=== PATIENT | male | born 1940 | race Hispanic/Latino ===

== ENCOUNTER 2019-05-01 08:07 | Inpatient (IN) | payer MEDICARE ==
[2019-04-28 10:51] LABS: BASOPHILS # (AUTO) 0.1 (0.0-0.1); BASOPHILS % 0.7 % (0.0-1.0); EOSINOPHILS # (AUTO) 0.3 (0.0-0.4); EOSINOPHILS % 4.2 % (0.0-6.0); HEMATOCRIT 40.6 % (38.2-49.6); HEMOGLOBIN 13.6 g/dL (14.0-18.0); LYMPHOCYTES # (AUTO) 1.8 (1.0-3.2); LYMPHOCYTES % 27.4 % (18.0-39.1); MEAN CORPUSCULAR HEMOGLOBIN 30.5 pg (28-32); MEAN CORPUSCULAR HGB CONC 33.5 g/dL (31-35); MONOCYTES # (AUTO) 0.6 (0.2-0.8); MONOCYTES % 8.3 % (4.4-11.3); NEUTROPHILS % 59.1 % (38.7-80.0); PLATELET COUNT 195 x10e3/uL (140-360); RED BLOOD COUNT 4.46 x10e6/uL (4.3-5.7)
[2019-04-28 11:08] LABS: ANION GAP 13.2 mmol/L (8-16); CALCIUM 10.5 mg/dL (8.4-10.2); CREATININE, SERUM 1.72 mg/dL (0.72-1.25); POTASSIUM 5.2 mmol/L (3.5-5.1)
[2019-05-01] VITALS (7 sets, daily range): BP systolic 127–146; BP diastolic 60–66
[~2019-05-01] VITALS: Ht 157.5 cm; Wt 61.2 kg
[~2019-05-01 08:07] MED LIST: ACIPHEX; ALLOPURINOL100 MG PO; ATORVASTATIN CA20 MG PO; AVODART; BACITRACIN 50,000 UNIT VIAL ONE; BENICAR; LOSARTAN-HCTZ1 EAC1 PO; OMEGA-31000 MG PO; PANTOPRAZOLE; PANTOPRAZOLE SO40 MG PO; ROPIVACAINE 246.25 MG, EPINEPHRINE HCL 1:1000 1ML 0.5 MG, CLONIDINE HCL 0.08 MG, KETORO... INJ ONE; SODIUM CHLORIDE 0.9% 500ML 500 ML ONE; TAMSULOSIN; TRANEXAMIC ACID 1,000 MG/10 ML ML ONE; TYLENOL # 31 EA PO; VANCOMYCIN HCL 1,000 MG ONE; VITAMIN D32000 UNIT PEG
[2019-05-01] MEDS ORDERED: GABAPENTIN 300 MG CAP ONE (08:24)
[2019-05-01] MEDS ORDERED: CEFAZOLIN SOD 1 GM/NS 50ML 100 ML IV ONE (08:24)
[2019-05-01] MEDS ORDERED: DEXAMETHASONE SOD PHOS 10 MG/1 ML VIAL ONE (08:24)
[2019-05-01] MEDS ORDERED: CELECOXIB 200 MG CAP ONE (08:24)
[2019-05-01] MEDS ORDERED: BUPIVACAINE 7.5MG/ML /DEXTROSE 82.5MG/ML 2 ML AMP INJ ONE (09:01)
[2019-05-01] MEDS ORDERED: ZOLPIDEM TARTRATE 5 MG TAB PO PRN (10:45)
[2019-05-01] MEDS ORDERED: ONDANSETRON HCL INJ 2MG/ML 2ML 2 MG/ML VIAL IV PRN (10:45)
[2019-05-01] MEDS ORDERED: HYDROCODONE/APAP 7.5MG-325MG 1 EA TAB PO PRN (10:45)
[2019-05-01] MEDS ORDERED: DIPHENHYDRAMINE HCL INJ 50 MG/ML VIAL IM/IV PRN (10:45)
[2019-05-01] MEDS ORDERED: KETOROLAC TROMETHAMINE 30 MG/ML VIAL IV PRN (10:45)
[2019-05-01] MEDS ORDERED: PROMETHAZINE HCL (IM) 25 MG/ML VIAL INJ PRN (10:45)
[2019-05-01] MEDS ORDERED: DOCUSATE SODIUM 100 MG CAP PO PRN (10:45)
[2019-05-01] MEDS ORDERED: ACETAMINOPHEN 650 MG SUPP PR PRN (10:45)
[2019-05-01] MEDS ORDERED: HYDROCODONE/APAP 5MG-325MG TAB PO PRN (10:45)
--- NOTE | 2019-05-01 12:20 | NUR ---
RECEIVED TO ROOM, AAOX3 NO DISTRESS NOTED, IVF INFUSING TO R HAND 20G NO SS OF INFILTRATION NOTED, UPDATED ON POC VOCIED UNDERSTANDING, AQUACELL TO RIGHT HIP C/D/I,FOOT PUMPS IN PLACE, CALL LIGHT IN REACH WILL CONTINUE TO MONITOR
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
[2019-05-01] MEDS: SODIUM CHLORIDE 0.9% 1000ML 1,000 ML IV SCH (13:27)
[2019-05-01] MEDS: ACETAMINOPHEN 1000 MG/100 ML IV SCH ×2 (13:27→18:05)
--- NOTE | 2019-05-01 13:29 | Diagnostic Imaging Report ---
EXAMINATION: PELVIS AP 1-2 VIEWS INDICATION: Postoperative COMPARISON: None FINDINGS: Portable AP radiograph of the pelvis was obtained. There are postoperative findings of right total hip replacement. No unexpected fracture. Alignment is anatomic. There is postoperative subcutaneous emphysema. Surgical skin shlomo in place. IMPRESSION: Anatomic alignment status post right total hip replacement. Signed by: Flora Gama MD on 05/01/2019 1:26 PM
--- NOTE | 2019-05-01 15:23 | NUR ---
DR BOGGS OFFICE PREARRANGED FOLLOWING DISCHARGE PLAN OF: RETURN HOME TO SONS HOME [address], [facility] [address] HOME [facility] WITH [facility] CONFIRMED WITH [facility] [phone] DME 3 IN ONE COMMODE. AND ROLLING WALKER WITH WHEELS WERE TO BE PROVIDED BY [facility] [employer] PER [facility] [phone] BUT SHE STATES THAT WHEN THEY CALLED THE PATIENT TO SET UP DELIVERY TIME THE PT CANCELLED THE EQUIPMENT AND STATED HE DIDN'T NEED IT. I SPOKE WITH THE DAUGHTER IN LAW AND SHE STATES HE HAS MOVED IN WITH THEM AND HE DOES NOT HAVE THE EQUIPMENT. SHE STATES TO NOT GET THE BEDSIDE COMMODE OR 3 IN 1 BUT WILL ACCEPT THE ROLLING WALKER WITH WHEELS PROVIDED MY MYSELF. OBTAINED SIGNATURES AND FILED IN PACU FOR COMPLETION OF FILING FOR PROCESSING.
[2019-05-01] MEDS: CELECOXIB 200 MG CAP PO SCH (17:40)
[2019-05-01] MEDS: CEFAZOLIN SOD 1 GM/NS 50ML 50 ML IV SCH (17:40)
[2019-05-01] MEDS: ASPIRIN 325 MG TAB PO SCH (17:40)
--- NOTE | 2019-05-01 17:40 | NUR ---
PT HAS NOT URINATED SINCE SURGERY, BLADDER SCANNED 603ML NOTED, PT ASSISTED TO SIDE OF BED TO URINATE IN URINAL, PT VOIDED 100CC OF YELLOW URINE, PT STATES" HE HAS TO HAVE A BM, PT ASSISTED TO BEDSIDE COMMODE, PT VOIDED 150CC OF YELLOW URINE, NOTIFIED DR. MIR ORDERS GIVEN FOR FLOMAX AND PRN STRAIGHT CATH, INFORMED PT AND FAMILY, PT DENIES DISCOMFORT TO ABDOMEN, WILL CONTINUE TO MONITOR
[2019-05-01] MEDS ORDERED: MIDAZOLAM HCL 2 MG/2 ML VIAL ONE (18:03)
[2019-05-01] MEDS ORDERED: FENTANYL CITRATE/PF 100MCG/2 ML INJ ONE (18:03)
[2019-05-01] MEDS ORDERED: ACETAMINOPHEN 1000 MG/100 ML IV ONE (19:33)
[2019-05-01] MEDS ORDERED: SEVOFLURANE INHAL SOLN 250 ML PEN BTL ONE (19:33)
[2019-05-01] MEDS ORDERED: DEXAMETHASONE SOD PHOS INJ 4 MG/ML VIAL ONE (19:33)
[2019-05-01] MEDS ORDERED: ONDANSETRON HCL INJ 2MG/ML 2ML 2 MG/ML VIAL ONE (19:33)
[2019-05-01] MEDS ORDERED: PROPOFOL IV EMULSION 10 MG/ML 20 ML VIAL ONE (19:33)
[2019-05-01] MEDS ORDERED: LIDOCAINE HCL 2% LOCAL INJ 5 ML SDV VIAL INJ ONE (19:33)
[2019-05-01] MEDS ORDERED: ATORVASTATIN 40 MG TAB PO SCH (21:00)
[2019-05-01] MEDS ORDERED: ATORVASTATIN 20 MG TAB PO SCH (21:00)
[2019-05-01] MEDS ORDERED: TAMSULOSIN HCL 0.4 MG CAP PO SCH (21:00)
[2019-05-02] VITALS: BP 123/58
[2019-05-02] MEDS: ACETAMINOPHEN 1000 MG/100 ML IV SCH ×2 (00:01→06:00)
[2019-05-02] MEDS: CEFAZOLIN SOD 1 GM/NS 50ML 50 ML IV SCH ×2 (01:59→09:18)
--- NOTE | 2019-05-02 02:04 | Consultation ---
DATE OF CONSULTATION: HISTORY: An 79-year-old male, who comes with right hip osteoarthritis, status post right hip arthroplasty by Dr. Giron, medical consultation. The patient has a history of gastritis, high blood pressure, and also has chronic kidney disease. The patient also according to the son has urinary retention from [id number]. The patient is an 79-year-old male without any other complaints. SOCIAL HISTORY: The patient denies any alcohol. The patient is retired. The patient is . Denies any tobacco use. He is a former smoker. FAMILY HISTORY: Hypertension and hyperlipidemia. CURRENT MEDICATIONS: He takes vitamin D3, cyanocobalamin, dicyclomine 20 mg t.i.d., duloxetine, Cymbalta for depression 30 mg t.i.d., esomeprazole 40 mg daily, lisinopril mg daily. The patient also takes omega-3 fatty acids. The patient was taking Tylenol No.4 for pain control. REVIEW OF SYSTEMS: The patient is status post surgery. No chest pain or shortness of breath. No nausea, vomiting, or diarrhea. No constipation. No rectal bleeding at this time. PHYSICAL EXAMINATION: VITAL SIGNS: Temperature is 96.5, pulse of 95, respirations of 18, blood pressure is 112/65, pulse oximetry of 93% on 3 L of oxygen. ASSESSMENT: 1. An 79-year-old gentleman status post right hip arthroplasty secondary to severe arthritis. 2. Hypertension. 3. History of smoking in the past. 4. Urinary retention. The patient has had bladder scan which showed 600. The patient did void, but intermittent catheterization has been ordered. Restart his home medications. Also put him on Flomax 0.4 mg at this time. The patient is scheduled to go to rehab. Further recommendation per clinical course. The patient is progressing well. Pain is controlled after surgery. Further recommendation per clinical course. Follow H and H and also continue monitoring his hemoglobin, hematocrit, and also his creatinine levels post surgery. For further information, look in the chart. MD CHAZ Seay/NATHANIEL /[id number]
[2019-05-02] MEDS: SODIUM CHLORIDE 0.9% 1000ML 1,000 ML IV SCH (02:14)
[2019-05-02 04:00] VITALS: BP 113/53
[2019-05-02 05:52] LABS: HEMATOCRIT 28.3 % (38.2-49.6); HEMOGLOBIN 9.7 g/dL (14.0-18.0)
--- NOTE | 2019-05-02 07:02 | NUR ---
RECEIVED PATIENT RESTING IN BED NO S/S OF DISTRESS. BED LOW, WHEELS LOCKED, SIDE RAILS X2. FAMILY AT BEDSIDE. CALL LIGHT IN REACH WILL CONTINUE TO MONITOR PATIENT.
[2019-05-02 07:25] VITALS: BP 108/58
[2019-05-02] MEDS ORDERED: PANTOPRAZOLE SOD 40 MG TABEC PO SCH (07:30)
[2019-05-02 08:03] VITALS: BP 108/58
[2019-05-02] MEDS ORDERED: OMEGA 3 POLYUNSAT FATTY ACIDS 1000 MG SOFTGEL PO SCH (09:00)
[2019-05-02] MEDS ORDERED: CHOLECALCIFEROL 1,000 UNIT TAB PO SCH (09:00)
[2019-05-02] MEDS ORDERED: OMEGA 500 MG PO SCH (09:00)
[2019-05-02] MEDS ORDERED: LOSARTAN POTASSIUM 100 MG TAB PO SCH (09:00)
[2019-05-02] MEDS ORDERED: NON-FORMULARY MEDICATION (Cholecalciferol (Vitamin D3) (Vitamin D3) 2,000 UNITS) PEG SCH (09:00)
[2019-05-02] MEDS ORDERED: NON-FORMULARY MEDICATION (Losartan/Hydrochlorothiazide (Losartan-Hctz 100-25 Mg Tab) 1 TAB PO SCH (09:00)
[2019-05-02] MEDS ORDERED: ALLOPURINOL 100 MG TAB PO SCH (09:00)
[2019-05-02] MEDS ORDERED: HYDROCHLOROTHIAZIDE 25 MG TAB PO SCH (09:00)
[2019-05-02] MEDS: CELECOXIB 200 MG CAP PO SCH (09:18)
[2019-05-02] MEDS: ASPIRIN 325 MG TAB PO SCH (09:18)
[2019-05-02] MEDS ORDERED: ACETAMINOPHEN 1000 MG/100 ML IV PRN (10:45)
--- NOTE | 2019-05-02 11:01 | Progress Note ---
DATE: SUBJECTIVE: The patient is status post right hip arthroplasty, currently stable. No chest pain. No shortness of breath. The patient had some difficulty with voiding. Intermittent catheterization was ordered. Flomax was started. The patient is currently stable. Has been able to urinate. No complaints noted. Medications reinstated home medications. OBJECTIVE: VITAL SIGNS: Temperature 96.3, pulse of 65, respirations of 18, and blood pressure is 113/53. HEENT: Normocephalic and atraumatic. CVS: S1 and S2 normal. RESPIRATION: Clear to auscultation bilaterally. ABDOMEN: Nontender and nondistended. EXTREMITIES: Hip joint, no discharge. No clubbing, no cyanosis, and no edema. ASSESSMENT: Mr. Mark Durham, status post right hip arthroplasty secondary to severe arthritis. Continue with intermittent catheterization as needed. We will continue monitoring the patient's vitals. Laboratory values post surgeries 9.7 and 28.3. Hematocrit is very stable. The patient can be discharged with physical therapy according to orthopedic recommendations and/or to SNF or rehab facility. MD ALLISON SeayJ/MODL /[id number]
[2019-05-02 11:25] VITALS: BP 125/59
[2019-05-02] MEDS ORDERED: MAGNESIUM/ALUMINUM/SIMETHICONE 30 ML UDC PO ONE (12:00)
--- NOTE | 2019-05-02 12:28 | NUR ---
IMM EXPLAINED TO PATIENT. PATIENT SIGNED, PLACED IN CHART. COPY LEFT IN CARE TRANSITIONS FOLDER
--- NOTE | 2019-05-02 14:00 | NUR ---
REMOVED PATIENTS IV. CATHETER TIP INTACT AND PRESSURE DRESSING APPLIED.
--- NOTE | 2019-05-02 14:03 | NUR ---
PATIENT DISCHARGED FROM FACILITY. PATIENT GATHERED ALL PERSONAL BELONGINGS, DISCHARGE INSTRUCTIONS AND FOLLOW UP INFORMATION. LEFT UNIT IN WHEELCHAIR AND WENT HOME VIA PRIVATE AUTO. NO SIGNS OF DISTRESS WHEN LEAVING FACILITY.
== END 2019-05-02 14:03 | disposition home health service (06) | DRG 470 ==
LOC: OR 08:07 → PACU V 10:39 → MED/SURG 12:42
PROVIDERS: ADMIT Specialist; ATTEND Specialist
PROC: 0SR906A Replacement of Right Hip Joint with Oxidized Zirconium on Polyethylene Synthetic Substitute, Uncemented, Open Approach (ICD-10-PCS; principal; 2019-05-01 10:00)
DX: M16.11 Unilateral primary osteoarthritis, right hip (principal); Z87.891 Personal history of nicotine dependence; R33.9 Retention of urine, unspecified; I10 Essential (primary) hypertension
CPT/HCPCS: 36415; 72170; 80048; 84132; 85014; 85018; 85025; 93005; J0171; J0690; J1100; J1885; J2001; J2250; J2405; J2795; J3010; J3370; J7030; J7040

== ENCOUNTER 2019-05-10 14:10 | Inpatient (IN) | payer MEDICARE ==
[~2019-05-10] VITALS: Ht 157.5 cm; Wt 62.2 kg
[~2019-05-10 14:10] MED LIST changes: -BACITRACIN 50,000 UNIT VIAL ONE; -ROPIVACAINE 246.25 MG, EPINEPHRINE HCL 1:1000 1ML 0.5 MG, CLONIDINE HCL 0.08 MG, KETORO... INJ ONE; -SODIUM CHLORIDE 0.9% 500ML 500 ML ONE; -TRANEXAMIC ACID 1,000 MG/10 ML ML ONE; -VANCOMYCIN HCL 1,000 MG ONE
[2019-05-10 15:10] LABS: BASOPHILS % 0.1 % (0.0-1.0); EOSINOPHILS % 0.1 % (0.0-6.0); HEMATOCRIT 27.3 % (38.2-49.6); HEMOGLOBIN 9.5 g/dL (14.0-18.0); LYMPHOCYTES # (AUTO) 0.4 (1.0-3.2); LYMPHOCYTES % 1.8 % (18.0-39.1); MEAN CORPUSCULAR HEMOGLOBIN 31.5 pg (28-32); MEAN CORPUSCULAR HGB CONC 34.8 g/dL (31-35); MEAN CORPUSCULAR VOLUME 90.4 fL (81-99); MONOCYTES # (AUTO) 0.8 (0.2-0.8); MONOCYTES % 3.7 % (4.4-11.3); NEUTROPHILS # (AUTO) 19.3 (2.1-6.9); NEUTROPHILS % 93.6 % (38.7-80.0); PLATELET COUNT 278 x10e3/uL (140-360); RED BLOOD COUNT 3.02 x10e6/uL (4.3-5.7); RED CELL DISTRIBUTION WIDTH 13.7 % (11.7-14.4)
[2019-05-10 15:19] LABS: INR 1.09; PARTIAL THROMBOPLASTIN TIME 38.3 seconds (23.8-35.5); PROTHROMBIN TIME 14.6 seconds (11.9-14.5)
[2019-05-10 15:28] LABS: ALBUMIN 2.5 g/dL (3.5-5.0); ALBUMIN/GLOBULIN RATIO 0.6 (0.8-2.0); ANION GAP 14.3 mmol/L (8-16); CALCIUM 9.9 mg/dL (8.4-10.2); CREATININE, SERUM 2.67 mg/dL (0.72-1.25); POTASSIUM 4.3 mmol/L (3.5-5.1)
[2019-05-10 15:35] LABS: CREATINE KINASE MB 0.6 ng/mL (0-5.0)
[2019-05-10 15:41] LABS: BILIRUBIN,URINE NEGATIVE (NEGATIVE); CLARITY,URINE SL CLOUDY (CLEAR); COLOR,URINE YELLOW (YELLOW); KETONES,URINE NEGATIVE (NEGATIVE); LEUKOCYTE ESTERASE ,URINE MODERATE (NEGATIVE); NITRITE,URINE POSITIVE (NEGATIVE); PROTEIN,URINE DIPSTICK 2+ (NEGATIVE); URINE UROBILINOGEN 0.2 mg/dL (0.2 - 1)
--- NOTE | 2019-05-10 15:44 | Diagnostic Imaging Report ---
EXAMINATION: CHEST SINGLE (PORTABLE) INDICATION: Weakness, vertigo COMPARISON: None FINDINGS: LINES/TUBES:EKG leads overlie the chest. LUNGS:The lungs are well-inflated. No focal consolidation or pulmonary edema. PLEURA:No pleural effusion or pneumothorax. MEDIASTINUM:The cardiomediastinal silhouette appears normal in size and shape. BONES/SOFT TISSUES:No acute osseous injury. ABDOMEN:No free air under the diaphragm. IMPRESSION: No focal pneumonia or pulmonary edema. Signed by: Flora Gama MD on 05/10/2019 3:40 PM
[2019-05-10] MEDS ORDERED: CEFTRIAXONE SOD 1 GM/NS 50 ML 50 ML IV ONE (16:00)
[2019-05-10 16:19] LABS: BACTERIA,URINE MODERATE /HPF; EPITHELIAL CELLS,URINE FEW /LPF; WBC,URINE (MAN) 21-50 /HPF (0-5)
--- NOTE | 2019-05-10 19:13 | NUR ---
Received patient from ER. Respiration even and unlabored without SOB. Family members at bedside. No tele. Given report to workforce management manager nurse. Call light in reach.
--- OUTSIDE RECORDS SUMMARY | 2019-05-10 19:50 | XMS REPORT ---
Author Author [facility] Address Unknown Phone Unavailable Care Team Providers Care Dust Handler Name Role Phone Milton SHARMA Unavailable Unavailable SANTHOSH DELEON Unavailable Unavailable Problems This patient has no known problems. Allergies, Adverse Reactions, Alerts This patient has no known allergies or adverse reactions. Medications This patient has no known medications. Results Test Description Test Time Test Comments Text Results Atomic Results Result Comments CHEST SINGLE (PORTABLE) 2019-05-10 15:40:00 [place] [address] Patient Name: MILES BARBER MR #: [id number] : 1940 Age/Sex: 79/M Req #: [id number] Adm Physician: Ordered by: DREAD SHARMA MD Report #: [id number] Location: ER Room/Bed: Procedure: [id number] DX/CHEST SINGLE (PORTABLE) Exam Date: 05/10/19 Exam Time: 1500 REPORT STATUS: Signed EXAMINATION: CHEST SINGLE (PORTABLE) INDICATION: Weakness, vertigo COMPARISON: None FINDINGS: LINES/TUBES:EKG leads overlie the chest. LUNGS:The lungs are well-inflated. No focal consolidation or pulmonary edema. PLEURA:No pleural effusion or pneumothorax. MEDIASTINUM:The cardiomediastinal silhouette appears normal in size and shape. BONES/SOFT TISSUES:No acute osseous injury. ABDOMEN:No free air under the diaphragm. IMPRESSION: No focal pneumonia or pulmonary edema. Signed by: Jero Wharton MD on 05/10/2019 3:40 PM Dictated By: JERO WHARTON MD 154 Transcribed By: BARBARA on 05/10/191539 COPY TO: DREAD SHARMA MD PELVIS AP 1-2 VIEWS 2019-05-01 13:25:00 [place] [address] Patient Name: MILES BARBER MR #: [id number] : 1940 Age/Sex: 79/M Req #: [id number] Adm Physician: SANTHOSH DELEON MD Ordered by: SANTHOSH DELEON MD Report #: [id number] Location: MED/SURG Room/Bed: [facility] Procedure: [id number] DX/PELVIS AP 1-2 VIEWS Exam Date: 05/01/19 Exam Time: 1245 REPORT STATUS: Signed EXAMINATION: PELVIS AP 1-2 VIEWS INDICATION: Postoperative COMPARISON: None FINDINGS: Portable AP radiograph of the pelvis was obtained. There are postoperative findings of right total hip replacement. No unexpected fracture. Alignment is anatomic. There is postoperative subcutaneous emphysema. Surgical skin shlomo in place. IMPRESSION: Anatomic alignment status post right total hip replacement. Signed by: Jero Wharton MD on 05/01/2019 1:26 PM Dictated By: JERO WHARTON MD [id number] Transcribed By: BARBARA on 05/01/19 132 COPY TO: SANTHOSH DELEON MD
[2019-05-10 19:53] LABS: LYMPHOCYTES % (MANUAL) 2 % (19-48); MONOCYTES % (MANUAL) 3 % (3.4-9.0); NEUTROPHILS % (MANUAL) 95 % (40-74); PLATELET ESTIMATE ADEQUATE; PLATELET MORPHOLOGY COMMENT NORMAL; RBC MORPHOLOGY COMMENT NORMAL
[2019-05-10 20:00] VITALS: BP 153/73
--- NOTE | 2019-05-10 20:15 | NUR ---
RECEIVED PT IN BED AOX3 .DENIES PAIN .RESPIRATIONS ARE EVEN AND UNLABORED .ASSESSMENT DONE FAMILY AT THE BEDSIDE .CALL LIGHT WITH IN REACH .CONTINUE TO MONITOR
[2019-05-10 20:44] VITALS: BP 153/73
[2019-05-10] MEDS: SODIUM CHLORIDE 0.9% 1000ML 1,000 ML IV SCH (20:45)
[2019-05-11] VITALS (9 sets, daily range): BP systolic 105–133; BP diastolic 56–80
--- NOTE | 2019-05-11 00:20 | NUR ---
TEM 101.[address] YOUNG WAITING FOR RETURN CALL
[2019-05-11] MEDS: SODIUM CHLORIDE 0.9% 1000ML 1,000 ML IV SCH ×2 (06:10→18:39)
[2019-05-11] MEDS: ACETAMINOPHEN 325 MG TAB PO PRN ×2 (07:00→23:12)
--- NOTE | 2019-05-11 07:13 | NUR ---
BEDSIDE REPORT GIVEN TO THE ONCOMING NURSE
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
[2019-05-11 09:22] LABS: ANION GAP 14.7 mmol/L (8-16); CALCIUM 9.2 mg/dL (8.4-10.2); CREATININE, SERUM 2.31 mg/dL (0.72-1.25); POTASSIUM 3.7 mmol/L (3.5-5.1)
[2019-05-11] MEDS: CEFEPIME 1GM/NS 0.9% 50 ML 50 ML IV SCH (09:35)
[2019-05-11] MEDS: PANTOPRAZOLE SOD 40 MG TABEC PO SCH (09:36)
[2019-05-11] MEDS: ALLOPURINOL 100 MG TAB PO SCH (09:37)
--- NOTE | 2019-05-11 10:30 | NUR ---
PHYSICAL THERAPY HERE
--- NOTE | 2019-05-11 11:00 | NUR ---
PT AMBULATED TO NURSES STATION TOLERATED QQWELL
[2019-05-11] MEDS: ACETAMINOPHEN/CODEINE 300MG - 30MG TAB PO PRN ×2 (14:42→21:16)
--- NOTE | 2019-05-11 14:45 | NUR ---
PT C/O RT HIP PAIN MEDICATED
--- NOTE | 2019-05-11 18:07 | NUR ---
PT UP IN BED NO FUTHER C/O PAIN
--- NOTE | 2019-05-11 20:17 | NUR ---
RECEIVED PT IN BED AOX3 .RESPIRATIONS ARE EVEN AND UNLABORED .TYREE LIGHT WITH IN REACH .CONTINUE TO MONITOR
[2019-05-11] MEDS ORDERED: ATORVASTATIN 20 MG TAB PO SCH (21:00)
[2019-05-11] MEDS: ATORVASTATIN 40 MG TAB PO SCH (21:06)
[2019-05-11] MEDS ORDERED: VANCOMYCIN 1GM/NS 250 ML 250 ML IV ONE (22:30)
--- NOTE | 2019-05-11 23:14 | NUR ---
BLOOD CULTURE CAME GRAM POSITIVE COCCI.NOTIFIED DR YOUNG .GOT THE ORDER TO GIVE VANCOMYCIN 1 GM X1 .C/O PAIN AND GIVEN ORDERED PAIN MEDICATION
[2019-05-12] VITALS (8 sets, daily range): BP systolic 110–184; BP diastolic 59–93
[2019-05-12] MEDS: SODIUM CHLORIDE 0.9% 1000ML 1,000 ML IV SCH ×3 (06:00→21:40)
--- NOTE | 2019-05-12 06:14 | NUR ---
PT DENIES PAIN NOW .NO ACUTE DISTRESS NOTED .CALL LIGHT WITH IN REACH .CONTINUE TO MONITOR
--- NOTE | 2019-05-12 07:18 | NUR ---
BEDSIDE REPORT GIVEN TO THE ONCOMING NURSE.
--- NOTE | 2019-05-12 08:19 | NUR ---
IM- progress note O/N no events ROS: no c/s/N/V/D/CRUZ/cp/sob/dizziness/back pain/leg pain v/s revd PE tired appearing anicteric ns1s2 mod bs soft nt nd no e/t a&ox3 skin dry n. affect labs/meds; revd A/P: 79yoM GILL UTI Sepsis due to UTI Hyponatremia N. anemia HLD Gout PLAN IV cefepime; IV fluid CHeck Na/Mg PT consult Urine cx Prop: ppi; scd Dipso: PT consult 05/12 check labs; Neville Venegas MD, PhD
[2019-05-12] MEDS: PANTOPRAZOLE SOD 40 MG TABEC PO SCH (09:08)
[2019-05-12] MEDS: CEFEPIME 1GM/NS 0.9% 50 ML 50 ML IV SCH (09:08)
[2019-05-12] MEDS: ALLOPURINOL 100 MG TAB PO SCH (09:08)
[2019-05-12 09:18] LABS: BASOPHILS % 0.2 % (0.0-1.0); EOSINOPHILS # (AUTO) 0.2 (0.0-0.4); EOSINOPHILS % 1.6 % (0.0-6.0); HEMATOCRIT 22.8 % (38.2-49.6); HEMOGLOBIN 7.6 g/dL (14.0-18.0); LYMPHOCYTES # (AUTO) 0.6 (1.0-3.2); LYMPHOCYTES % 5.4 % (18.0-39.1); MEAN CORPUSCULAR HGB CONC 33.3 g/dL (31-35); MEAN CORPUSCULAR VOLUME 93.1 fL (81-99); MONOCYTES # (AUTO) 0.5 (0.2-0.8); MONOCYTES % 5.2 % (4.4-11.3); NEUTROPHILS # (AUTO) 8.9 (2.1-6.9); NEUTROPHILS % 87.1 % (38.7-80.0); PLATELET COUNT 207 x10e3/uL (140-360); RED BLOOD COUNT 2.45 x10e6/uL (4.3-5.7); RED CELL DISTRIBUTION WIDTH 13.7 % (11.7-14.4)
[2019-05-12 09:35] LABS: ANION GAP 12.8 mmol/L (8-16); CALCIUM 8.8 mg/dL (8.4-10.2); CREATININE, SERUM 1.96 mg/dL (0.72-1.25); POTASSIUM 3.8 mmol/L (3.5-5.1)
--- NOTE | 2019-05-12 09:44 | NUR ---
CALLED AND SPOKE WITH DR. YOUNG REGARDING NEW RESULT UPDATE OVER BLOOD CULTURES BEING GRAM NEGATIVE RODS. NO NEW ORDERS GIVEN BUT TO CONTINUE WITH CURRENT IV ANTIBIOTIC.
[2019-05-12] MEDS ORDERED: PROMETHAZINE 12.5MG/ NACL 0.9% 12.5 MG/50 ML BAG IV PRN (10:30)
--- NOTE | 2019-05-12 19:37 | NUR ---
PATIENT IN STABLE CONDITION WITH NO S/S OF RESPIRATOR DISTRESS. NO PAIN VOICED. IV FLUIDS INFUSING. FAMILY MEMBERS PRESENT IN ROOM. CALL LIGHT IS WITHIN REACH, PATIENT INSTRUCTED TO CALL FOR ASSISTANCE NEEDED. BEDSIDE REPORT GIVEN TO ONCOMING NURSE.
--- NOTE | 2019-05-12 19:42 | NUR ---
PT IS RESTING IN THE CHAIR WITH FAMILY AT BEDSIDE. RESPIRATION IS EVEN AND UNLABORED, NO DISTRESS NOTED. BED IN THE LOWEST POSITION, LOCKED, AND CALL LIGHT WITHIN REACH. WILL CONTINUE TO MONITOR.
[2019-05-12] MEDS: ATORVASTATIN 40 MG TAB PO SCH (20:08)
[2019-05-13] VITALS (8 sets, daily range): BP systolic 115–151; BP diastolic 55–81
[2019-05-13] MEDS: PANTOPRAZOLE SOD 40 MG TABEC PO SCH (06:34)
[2019-05-13] MEDS: CEFEPIME 1GM/NS 0.9% 50 ML 50 ML IV SCH (08:15)
[2019-05-13] MEDS: ALLOPURINOL 100 MG TAB PO SCH (08:15)
--- NOTE | 2019-05-13 08:18 | NUR ---
IM- progress note O/N no events ROS: no c/s/N/V/D/CRUZ/cp/sob/dizziness/back pain/leg pain v/s revd PE tired appearing anicteric ns1s2 mod bs soft nt nd no e/t a&ox3 skin dry n. affect labs/meds; revd A/P: 79yoM GILL UTI Sepsis due to UTI Hyponatremia N. anemia HLD Gout PLAN IV cefepime; IV fluid CHeck Na/Mg PT consult Urine cx Prop: ppi; scd Dipso: PT consult 05/12 check labs; 05/13 no fever; leukocytosis resolved; GILL improving; check labs; GNR UTI Neville Venegas MD, PhD
[2019-05-13 10:13] LABS: BASOPHILS % 0.5 % (0.0-1.0); EOSINOPHILS # (AUTO) 0.3 (0.0-0.4); EOSINOPHILS % 3.5 % (0.0-6.0); HEMATOCRIT 24.6 % (38.2-49.6); HEMOGLOBIN 8.1 g/dL (14.0-18.0); LYMPHOCYTES # (AUTO) 0.5 (1.0-3.2); LYMPHOCYTES % 7.1 % (18.0-39.1); MEAN CORPUSCULAR HEMOGLOBIN 30.9 pg (28-32); MEAN CORPUSCULAR HGB CONC 32.9 g/dL (31-35); MEAN CORPUSCULAR VOLUME 93.9 fL (81-99); MONOCYTES # (AUTO) 0.6 (0.2-0.8); MONOCYTES % 8.5 % (4.4-11.3); NEUTROPHILS % 79.3 % (38.7-80.0); PLATELET COUNT 225 x10e3/uL (140-360); RED BLOOD COUNT 2.62 x10e6/uL (4.3-5.7); RED CELL DISTRIBUTION WIDTH 13.6 % (11.7-14.4)
[2019-05-13] MEDS: SODIUM CHLORIDE 0.9% 1000ML 1,000 ML IV SCH ×2 (10:16→16:45)
[2019-05-13 10:29] LABS: ANION GAP 11.7 mmol/L (8-16); CALCIUM 8.9 mg/dL (8.4-10.2); CREATININE, SERUM 1.72 mg/dL (0.72-1.25); POTASSIUM 3.7 mmol/L (3.5-5.1)
--- NOTE | 2019-05-13 10:39 | NUR ---
PATIENT IS IN STABLE CONDITION WITH NO S/S OF RESPIRATORY DISTRESS. NO PAIN VOICED. IV FLUIDS INFUSING. SON PRESENT IN ROOM. CALL LIGHT IS WITHIN REACH, PATIENT IS INSTRUCTED TO CALL FOR ASSISTANCE NEEDED.
--- NOTE | 2019-05-13 12:17 | NUR ---
RIGHT AC/IV REMOVED WITH TIP INTACT. PATIENT IN SHOWER AND PCT ASSISTING.
[2019-05-13] MEDS: ACETAMINOPHEN/CODEINE 300MG - 30MG TAB PO PRN (14:30)
--- NOTE | 2019-05-13 18:49 | NUR ---
PATIENT IS IN STABLE CONDITION WITH NO S/S OF RESPIRATORY DISTRESS. FAMILY MEMBERS PRESENT IN THE ROOM. DIAPER APPLIED. CALL LIGHT IS WITHIN REACH, PATIENT IS INSTRUCTED TO CALL FOR ASSISTANCE NEEDED. BEDSIDE REPORT GIVEN TO ONCOMING NURSE.
--- NOTE | 2019-05-13 19:15 | NUR ---
patient received awake, alert, lying quietly in bed. no c/o pain noted. ivf continue to infuse without difficulty. pm assessment complete. patient instructed to call for assistance when needed.
[2019-05-13] MEDS: ATORVASTATIN 40 MG TAB PO SCH (20:39)
[2019-05-14] VITALS (8 sets, daily range): BP systolic 123–165; BP diastolic 63–79
[2019-05-14] MEDS: SODIUM CHLORIDE 0.9% 1000ML 1,000 ML IV SCH ×2 (04:20→14:04)
[2019-05-14] MEDS: PANTOPRAZOLE SOD 40 MG TABEC PO SCH (08:00)
[2019-05-14] MEDS: ALLOPURINOL 100 MG TAB PO SCH (08:00)
[2019-05-14] MEDS: CEFEPIME 1GM/NS 0.9% 50 ML 50 ML IV SCH (08:00)
--- NOTE | 2019-05-14 16:38 | NUR ---
IM- progress note O/N no events ROS: no c/s/N/V/D/CRUZ/cp/sob/dizziness/back pain/leg pain v/s revd PE tired appearing anicteric ns1s2 mod bs soft nt nd no e/t a&ox3 skin dry n. affect labs/meds; revd A/P: 79yoM GILL UTI Sepsis due to UTI Hyponatremia N. anemia HLD Gout PLAN IV cefepime; IV fluid CHeck Na/Mg PT consult Urine cx Prop: ppi; scd Dipso: PT consult 05/12 check labs; 05/13 no fever; leukocytosis resolved; GILL improving; check labs; GNR UTI 05/14 Enterobacter aerogenes Bacteremia and UTI - both sensitive to cefepime; cont IV abx; check labs in am. monitor renal fn; Neville Venegas MD, PhD
--- NOTE | 2019-05-14 19:16 | NUR ---
PATIENT REMAINS IN STABLE CONDITION WITH NO S/S OF RESPIRATORY DISTRESS. NO PAIN VOICED. IV FLUIDS INFUSING. BED ALARM APPLIED. FAMILY MEMBERS PRESENT IN ROOM. CALL LIGHT IS WITHIN REACH, PATIENT IS INSTRUCTED TO CALL FOR ASSISTANCE NEEDED. BEDSIDE REPORT GIVEN TO ONCOMING NURSE.
--- NOTE | 2019-05-14 19:46 | NUR ---
PT IS RESTING IN BED WITH FAMILY AT BEDSIDE. RESPIRATION IS EVEN AND UNLABORED, NO DISTRESS NOTED. BED IN THE LOWEST POSITION, LOCKED, BED ALARM ON, AND CALL LIGHT WITHIN REACH. WILL CONTINUE TO MONITOR.
[2019-05-14] MEDS: ATORVASTATIN 40 MG TAB PO SCH (22:00)
[2019-05-15] VITALS (8 sets, daily range): BP systolic 122–170; BP diastolic 58–76
[2019-05-15] MEDS: SODIUM CHLORIDE 0.9% 1000ML 1,000 ML IV SCH ×3 (03:54→23:49)
[2019-05-15] MEDS: PANTOPRAZOLE SOD 40 MG TABEC PO SCH (06:33)
--- NOTE | 2019-05-15 07:10 | NUR ---
received bedside report from overnight associate RN, pt resting comfortably, no signs of distress noted, will continue to monitor.
--- NOTE | 2019-05-15 07:35 | NUR ---
IM- progress note O/N no events ROS: no c/s/N/V/D/CRUZ/cp/sob/dizziness/back pain/leg pain v/s revd PE tired appearing anicteric ns1s2 mod bs soft nt nd no e/t a&ox3 skin dry n. affect labs/meds; revd A/P: 79yoM GILL UTI Sepsis due to UTI Hyponatremia N. anemia HLD Gout PLAN IV cefepime; IV fluid CHeck Na/Mg PT consult Urine cx Prop: ppi; scd Dipso: PT consult 05/12 check labs; 05/13 no fever; leukocytosis resolved; GILL improving; check labs; GNR UTI 05/14 Enterobacter aerogenes Bacteremia and UTI - both sensitive to cefepime; cont IV abx; check labs in am. monitor renal fn; 05/15 check labs; recheck blood cx. Neville Venegas MD, PhD
[2019-05-15 08:27] LABS: BASOPHILS % 0.4 % (0.0-1.0); EOSINOPHILS # (AUTO) 0.3 (0.0-0.4); EOSINOPHILS % 5.2 % (0.0-6.0); HEMATOCRIT 20.1 % (38.2-49.6); LYMPHOCYTES # (AUTO) 0.8 (1.0-3.2); LYMPHOCYTES % 15.9 % (18.0-39.1); MEAN CORPUSCULAR HEMOGLOBIN 30.7 pg (28-32); MEAN CORPUSCULAR HGB CONC 33.3 g/dL (31-35); MEAN CORPUSCULAR VOLUME 92.2 fL (81-99); MONOCYTES # (AUTO) 0.6 (0.2-0.8); MONOCYTES % 12.2 % (4.4-11.3); NEUTROPHILS # (AUTO) 3.4 (2.1-6.9); NEUTROPHILS % 64.8 % (38.7-80.0); PLATELET COUNT 242 x10e3/uL (140-360); RED BLOOD COUNT 2.18 x10e6/uL (4.3-5.7); RED CELL DISTRIBUTION WIDTH 13.6 % (11.7-14.4)
[2019-05-15 08:40] LABS: HEMOGLOBIN 6.7 g/dL (14.0-18.0)
[2019-05-15 08:59] LABS: CALCIUM 8.5 mg/dL (8.4-10.2); CREATININE, SERUM 1.39 mg/dL (0.72-1.25)
[2019-05-15] MEDS: ALLOPURINOL 100 MG TAB PO SCH (09:23)
[2019-05-15] MEDS: CEFEPIME 1GM/NS 0.9% 50 ML 50 ML IV SCH (09:24)
--- NOTE | 2019-05-15 10:20 | NUR ---
informed Dr. Venegas of pt's hemoglobin level; pt and family refusing blood, stating they are [employer]. refusal form signed and placed on pt's chart.
[2019-05-15] MEDS: FERROUS SULFATE 325 MG TAB PO SCH (15:22)
--- NOTE | 2019-05-15 19:15 | NUR ---
Received patient awake on bed, with ongoing IV fluids, patient not in distress. Call light within easy reach, advised to call anytime when needed, will continue to monitor closely
[2019-05-15] MEDS: ATORVASTATIN 40 MG TAB PO SCH (21:47)
[2019-05-16] VITALS (8 sets, daily range): BP systolic 129–149; BP diastolic 60–77
[2019-05-16] MEDS: SODIUM CHLORIDE 0.9% 1000ML 1,000 ML IV SCH (04:09)
[2019-05-16 06:27] LABS: BASOPHILS % 0.4 % (0.0-1.0); EOSINOPHILS # (AUTO) 0.2 (0.0-0.4); EOSINOPHILS % 4.1 % (0.0-6.0); HEMATOCRIT 19.9 % (38.2-49.6); LYMPHOCYTES # (AUTO) 0.9 (1.0-3.2); LYMPHOCYTES % 16.2 % (18.0-39.1); MEAN CORPUSCULAR HEMOGLOBIN 30.7 pg (28-32); MEAN CORPUSCULAR HGB CONC 33.2 g/dL (31-35); MEAN CORPUSCULAR VOLUME 92.6 fL (81-99); MONOCYTES # (AUTO) 0.6 (0.2-0.8); MONOCYTES % 12.1 % (4.4-11.3); NEUTROPHILS # (AUTO) 3.5 (2.1-6.9); NEUTROPHILS % 65.1 % (38.7-80.0); PLATELET COUNT 278 x10e3/uL (140-360); RED BLOOD COUNT 2.15 x10e6/uL (4.3-5.7); RED CELL DISTRIBUTION WIDTH 13.8 % (11.7-14.4)
[2019-05-16 06:40] LABS: HEMOGLOBIN 6.6 g/dL (14.0-18.0)
[2019-05-16 06:56] LABS: ANION GAP 8.9 mmol/L (8-16); CALCIUM 8.6 mg/dL (8.4-10.2); CREATININE, SERUM 1.41 mg/dL (0.72-1.25); POTASSIUM 3.9 mmol/L (3.5-5.1)
--- NOTE | 2019-05-16 06:59 | NUR ---
received call from the lab, patient's latest hemoglobin level was 6.6, patient signed the refusal to receive blood in the chart, patient is a [employer] witness
--- NOTE | 2019-05-16 07:37 | NUR ---
IM- progress note O/N no events ROS: no c/s/N/V/D/CRUZ/cp/sob/dizziness/back pain/leg pain v/s revd PE tired appearing anicteric ns1s2 mod bs soft nt nd no e/t a&ox3 skin dry n. affect labs/meds; revd A/P: 79yoM GILL UTI Sepsis due to UTI Hyponatremia N. anemia HLD Gout PLAN IV cefepime; IV fluid CHeck Na/Mg PT consult Urine cx Prop: ppi; scd Dipso: PT consult 05/12 check labs; 05/13 no fever; leukocytosis resolved; GILL improving; check labs; GNR UTI 05/14 Enterobacter aerogenes Bacteremia and UTI - both sensitive to cefepime; cont IV abx; check labs in am. monitor renal fn; 05/15 check labs; recheck blood cx. 05/16 check stool occult blood; add bicarbs; reduce fluids; cont NS for hyponatremia. Neville Venegas MD, PhD
[2019-05-16] MEDS: SODIUM BICARBONATE 650 MG TAB PO SCH ×2 (08:30→17:00)
[2019-05-16] MEDS: PANTOPRAZOLE SOD 40 MG TABEC PO SCH (08:30)
[2019-05-16] MEDS: ALLOPURINOL 100 MG TAB PO SCH (08:30)
[2019-05-16] MEDS: SENNOSIDES 8.6 MG TAB PO SCH ×2 (08:30→20:48)
[2019-05-16] MEDS: MULTIVITAMINS/MINERALS TAB PO SCH (08:30)
[2019-05-16] MEDS: FERROUS SULFATE 325 MG TAB PO SCH ×2 (08:30→17:00)
[2019-05-16] MEDS: CEFEPIME 1GM/NS 0.9% 50 ML 50 ML IV SCH (08:30)
--- NOTE | 2019-05-16 15:38 | NUR ---
Nutrition Screen Note RD Recommendation for Physician: - Continue current diet Plan of Care: RD following, monitoring for tolerance and adequacy Nutrition reason for involvement: LOS Primary Diagnose(s):ARF, UTI PMH: HTN, HLD, GERD, stroke, recent R hip ORIF Ht: 62 in Wt: 132.19 lb BMI: 24.2 kg/m2 IBW: [address] Assessment: (05/16) 79 YOM admitted for ARF and UTI, seen today for LOS. Pt's family member at bedside provided translation. Pt eating lunch at time of visit, states he's eating well. Pt denies any difficulty swallowing, states he can't chew "tough" foods. Pt denies any GI distress. No questions or concerns at time of visit. Chart reviewed. Labs and meds reviewed. Will monitor and continue to follow. Current Diet: Cardiac Malnutrition Evaluation (05/16/19) The patient does not meet criteria for a specified degree of malnutrition at this time. Will re-evaluate at follow-up as appropriate. Diet Education Needs Assessment: Diet education not indicated. Diet tolerance: tolerating po Nutrition Care Level: Low Signed: Tori Peck RD, LD, [facility]
--- NOTE | 2019-05-16 15:39 | NUR ---
Received order for LTAC. Went to see patient to obtain choice. Patient states he does not want to go to [facility] again. States he has [facility] currently. Notified Dejuan LEAL. Patient is on 2 IV antibiotics, reached out to Dr. Torrez to notify him of patient decision to go home and request a plan for DC antibiotics. Addendum: 05/17/19 at 1355 by Mari Blackman CM wrong patient!
--- NOTE | 2019-05-16 17:01 | NUR ---
PT UP IN BED DENIES PAIN ,NO DISTRESS NOTED
--- NOTE | 2019-05-16 19:00 | NUR ---
Received patient awake on bed, with ongoing IV fluids, no complaints at this time, call light within reach, bed in low position and locked, will continue to monitor
[2019-05-16] MEDS: ATORVASTATIN 40 MG TAB PO SCH (20:48)
[2019-05-17] VITALS (10 sets, daily range): BP systolic 132–171; BP diastolic 60–86
[2019-05-17] MEDS: SODIUM CHLORIDE 0.9% 1000ML 1,000 ML IV SCH ×2 (00:26→06:27)
--- NOTE | 2019-05-17 06:56 | NUR ---
RECEIVED REPORT FROM OFF GOING NURSE. WALKING ROUNDS DONE. PATIENT IS RESTING IN BED. NO ACUTE DISTRESS NOTED. CALL LIGHT WITHIN REACH. BED IN THE LOWEST POSITION.
[2019-05-17] MEDS: SENNOSIDES 8.6 MG TAB PO SCH ×2 (09:14→21:53)
[2019-05-17] MEDS: ALLOPURINOL 100 MG TAB PO SCH (09:14)
[2019-05-17] MEDS: CEFEPIME 1GM/NS 0.9% 50 ML 50 ML IV SCH (09:14)
[2019-05-17] MEDS: MULTIVITAMINS/MINERALS TAB PO SCH (09:14)
[2019-05-17] MEDS: PANTOPRAZOLE SOD 40 MG TABEC PO SCH (09:14)
[2019-05-17] MEDS: FERROUS SULFATE 325 MG TAB PO SCH ×2 (09:14→16:06)
[2019-05-17] MEDS: SODIUM BICARBONATE 650 MG TAB PO SCH ×2 (09:14→16:06)
--- NOTE | 2019-05-17 10:01 | NUR ---
IM- progress note O/N no events ROS: no c/s/N/V/D/CRUZ/cp/sob/dizziness/back pain/leg pain v/s revd PE tired appearing anicteric ns1s2 mod bs soft nt nd no e/t a&ox3 skin dry n. affect labs/meds; revd A/P: 79yoM GILL UTI Sepsis due to UTI Hyponatremia N. anemia HLD Gout PLAN IV cefepime; IV fluid CHeck Na/Mg PT consult Urine cx Prop: ppi; scd Dipso: PT consult 05/12 check labs; 05/13 no fever; leukocytosis resolved; GILL improving; check labs; GNR UTI 05/14 Enterobacter aerogenes Bacteremia and UTI - both sensitive to cefepime; cont IV abx; check labs in am. monitor renal fn; 05/15 check labs; recheck blood cx. 05/16 check stool occult blood; add bicarbs; reduce fluids; cont NS for hyponatremia. 05/17 Positive GIB; GI consult; check H/H. check Na. Neville Venegas MD, PhD
[2019-05-17 11:22] LABS: HEMATOCRIT 23.9 % (38.2-49.6); HEMOGLOBIN 7.8 g/dL (14.0-18.0)
--- NOTE | 2019-05-17 13:55 | NUR ---
Spoke to dr. venegas regarding plan of care, wanting GI consult for FOB and dysphagia. CM spoke with patient, and patient states he sees Dr. Elliott outpatient, is planning to follow up outpatient for dysphagia. Patient sitting up in chair eating meal. Notified Dr. Venegas of this, he states recheck an HH at 1600 and call with results for possible d/c. Melonie LEAL notified.
--- NOTE | 2019-05-17 15:33 | NUR ---
clinicals and order faxed to [facility] for resumption of service
[2019-05-17 18:04] LABS: HEMATOCRIT 24.8 % (38.2-49.6); HEMOGLOBIN 8.2 g/dL (14.0-18.0)
--- NOTE | 2019-05-17 18:22 | NUR ---
NOTIFIED DR. YOUNG OF PATIENTS' HGB LEVEL OF 8.2, WAITING CARE ATTENDANT BACK.
--- NOTE | 2019-05-17 19:40 | NUR ---
PT IS RESTING IN BED WITH FAMILY AT BEDSIDE. RESPIRATION IS EVEN AND UNLABORED, NO DISTRESS NOTED. BED IN THE LOWEST POSITION, LOCKED, AND CALL LIGHT WITHIN REACH. WILL CONTINUE TO MONITOR.
--- NOTE | 2019-05-17 19:42 | NUR ---
REPORT GIVEN TO ONCOMING NURSE. WALKING ROUNDS DONE. PATIENT IS RESTING IN BED. NO ACUTE DISTRESS NOTED. FAMILY AT BEDSIDE. CALL LIGHT WITHIN REACH. BED IN THE LOWEST POSITION.
[2019-05-17] MEDS: ATORVASTATIN 40 MG TAB PO SCH (21:53)
[2019-05-18] VITALS (7 sets, daily range): BP systolic 125–139; BP diastolic 60–70
--- NOTE | 2019-05-18 03:59 | Consultation ---
DATE OF CONSULTATION: 05/17/2019 HISTORY OF PRESENT ILLNESS: This is an 79-year-old, who apparently had some black stool and he came in initially because of some fatigue and weakness. His hemoglobin apparently dropped from on admission was 9.5 down to as low as 6.6, this has been going up again to 8.2. He apparently has history of hiatal hernia, but he denies any abdominal pain, nausea, or vomiting along with this problem. PAST MEDICAL PROBLEMS: Significant for history of hip fracture , hypertension, reflux, depression, and history of CVA. ALLERGIES: NONE. CURRENT MEDICATIONS: He is on iron, Senokot, Protonix, zyloprim, cefepime and Lipitor. SOCIAL HISTORY: No alcohol use. FAMILY HISTORY: Noncontributory. REVIEW OF SYSTEMS: At this point denies any chest pain or shortness of breath. Denies any dysphagia, odynophagia. Denies any dysuria, hematuria, or any kind of syncopal episode. PHYSICAL EXAMINATION: GENERAL: The patient is awake and alert, appears to be stable. VITAL SIGNS: Afebrile currently. HEAD, EYES, NOSE, AND THROAT: Normocephalic and atraumatic. Sclera are anicteric. NECK: Supple. HEART: Sounds regular. ABDOMEN: Soft. There is no distention at this point. He is nontender. EXTREMITIES: No clubbing. LABORATORY DATA: Hemoglobin of 8.2, hematocrit is 24.8. BUN and creatinine were okay yesterday at 49 and 2.0. ASSESSMENT: 1. Possible GI bleed with black tarry stool, hemoglobin dropped. It is better now. 2. History of hip fractures. 3. History of urinary tract infection. RECOMMENDATION: Continue care at this point, at this point, we will proceed with EGD for further evaluation tomorrow. Follow labs clinically. Brody Jordan MD DHD/MODL /[id number] cc: MD Moses Mcguire MD
[2019-05-18 06:17] LABS: BASOPHILS % 0.5 % (0.0-1.0); EOSINOPHILS # (AUTO) 0.2 (0.0-0.4); EOSINOPHILS % 3.2 % (0.0-6.0); MEAN CORPUSCULAR HEMOGLOBIN 30.9 pg (28-32); MEAN CORPUSCULAR HGB CONC 33.7 g/dL (31-35); MEAN CORPUSCULAR VOLUME 91.8 fL (81-99); MONOCYTES # (AUTO) 0.6 (0.2-0.8); MONOCYTES % 10.3 % (4.4-11.3); NEUTROPHILS # (AUTO) 4.1 (2.1-6.9); PLATELET COUNT 315 x10e3/uL (140-360); RED CELL DISTRIBUTION WIDTH 14.3 % (11.7-14.4)
[2019-05-18 06:20] LABS: HEMATOCRIT 20.2 % (38.2-49.6); HEMOGLOBIN 6.8 g/dL (14.0-18.0)
--- NOTE | 2019-05-18 06:24 | NUR ---
SPOKE TO DR YOUNG IN REGARD TO PT HGB 6.8 AND HCT 20.2. NO NEW ORDERS AT THIS TIME. WILL CONTINUE TO MONITOR.
--- NOTE | 2019-05-18 06:30 | NUR ---
IM- progress note O/N no events ROS: no c/s/N/V/D/CRUZ/cp/sob/dizziness/back pain/leg pain v/s revd PE tired appearing anicteric ns1s2 mod bs soft nt nd no e/t a&ox3 skin dry n. affect labs/meds; revd A/P: 79yoM GILL UTI Sepsis due to UTI Hyponatremia N. anemia HLD Gout PLAN IV cefepime; IV fluid CHeck Na/Mg PT consult Urine cx Prop: ppi; scd Dipso: PT consult 05/12 check labs; 05/13 no fever; leukocytosis resolved; GILL improving; check labs; GNR UTI 05/14 Enterobacter aerogenes Bacteremia and UTI - both sensitive to cefepime; cont IV abx; check labs in am. monitor renal fn; 05/15 check labs; recheck blood cx. 05/16 check stool occult blood; add bicarbs; reduce fluids; cont NS for hyponatremia. 05/17 Positive GIB; GI consult; check H/H. check Na. 05/18 NS at 40/hr; bicarbs; EGD pending; Neville Venegas MD, PhD
[2019-05-18] MEDS: SODIUM CHLORIDE 0.9% 1000ML 1,000 ML IV SCH (06:38)
[2019-05-18] MEDS: FERROUS SULFATE 325 MG TAB PO SCH ×2 (08:00→16:54)
[2019-05-18] MEDS: CEFEPIME 1GM/NS 0.9% 50 ML 50 ML IV SCH (08:31)
[2019-05-18] MEDS: SODIUM BICARBONATE 650 MG TAB PO SCH ×2 (08:31→16:54)
[2019-05-18] MEDS: SENNOSIDES 8.6 MG TAB PO SCH ×2 (08:31→20:12)
--- NOTE | 2019-05-18 13:10 | NUR ---
PATIENT OFF THE UNIT FOR PROCEDURE AT THIS TIME.
[2019-05-18] MEDS ORDERED: PROPOFOL IV EMULSION 10 MG/ML 50 ML VIAL ONE (14:09)
[2019-05-18] MEDS ORDERED: LIDOCAINE HCL 2% LOCAL INJ 5 ML SDV VIAL INJ ONE (14:09)
--- NOTE | 2019-05-18 14:28 | NUR ---
PATIENT BACK TO UNIT AT THIS TIME.
[2019-05-18] MEDS: MULTIVITAMINS/MINERALS TAB PO SCH (15:07)
[2019-05-18] MEDS: ALLOPURINOL 100 MG TAB PO SCH (15:07)
[2019-05-18] MEDS: PANTOPRAZOLE SOD 40 MG TABEC PO SCH (15:07)
[2019-05-18] MEDS: SUCRALFATE 1 GM TAB PO SCH ×2 (16:54→20:12)
--- NOTE | 2019-05-18 19:11 | NUR ---
REPORT GIVEN TO ONCOMING NURSE. WALKING ROUNDS DONE. PATIENT IS RESTING IN BED. NO ACUTE DISTRESS NOTED. CALL LIGHT WITHIN REACH. BED IN THE LOWEST POSITION.
--- NOTE | 2019-05-18 19:22 | NUR ---
PT IS RESTING IN BED. RESPIRATION IS EVEN AND UNLABORED, NO DISTRESS NOTED. BED IN THE LOWEST POSITION, LOCKED, BED ALARM, AND CALL LIGHT WITHIN REACH. WILL CONTINUE TO MONITOR.
[2019-05-18] MEDS: ATORVASTATIN 40 MG TAB PO SCH (20:12)
[2019-05-19] VITALS: BP 124/61
[2019-05-19 04:01] VITALS: BP 139/63
[2019-05-19] MEDS: SODIUM CHLORIDE 0.9% 1000ML 1,000 ML IV SCH (06:12)
--- NOTE | 2019-05-19 06:50 | NUR ---
received shift change report from night custodian RN, pt resting comfortably, easily aroused, no signs of distress, will continue to monitor.
[2019-05-19 06:56] LABS: HEMOGLOBIN 6.8 g/dL (14.0-18.0)
[2019-05-19 06:57] LABS: HEMATOCRIT 20.9 % (38.2-49.6)
[2019-05-19] MEDS ORDERED: SENOKOT8.6 MG PO (07:15)
[2019-05-19] MEDS ORDERED: SODIUM BICARBO650 MG PO (07:15)
[2019-05-19] MEDS ORDERED: CARAFATE1 GM PO (07:15)
[2019-05-19] MEDS ORDERED: PANTOPRAZOLE SO40 MG PO (07:15)
[2019-05-19] MEDS ORDERED: CIPRO500 MG PO (07:18)
--- NOTE | 2019-05-19 07:22 | NUR ---
D/C summary Principal Dx: GILL UTI Sepsis due to UTI Hyponatremia N. anemia Secondary Dx: HLD Gout PLAN IV cefepime; IV fluid CHeck Na/Mg PT consult Urine cx Prop: ppi; scd Dipso: PT consult 05/12 check labs; 05/13 no fever; leukocytosis resolved; GILL improving; check labs; GNR UTI 05/14 Enterobacter aerogenes Bacteremia and UTI - both sensitive to cefepime; cont IV abx; check labs in am. monitor renal fn; 05/15 check labs; recheck blood cx. 05/16 check stool occult blood; add bicarbs; reduce fluids; cont NS for hyponatremia. 05/17 Positive GIB; GI consult; check H/H. check Na. 05/18 NS at 40/hr; bicarbs; EGD pending; 05/18 EGD showed severe gastritis; no active source of bleeding; Pt refuses blood due to mu-ism. Likely has CKD3. Will need f/u with nephrology and GI. d/c home f/u pcp 1 week and 1 week and 1 week stable d/c>35mins Neville Venegas MD, PhD
[2019-05-19 08:00] VITALS: BP 150/64
[2019-05-19] MEDS: SUCRALFATE 1 GM TAB PO SCH (08:48)
[2019-05-19] MEDS: CEFEPIME 1GM/NS 0.9% 50 ML 50 ML IV SCH (08:48)
[2019-05-19] MEDS: PANTOPRAZOLE SOD 40 MG TABEC PO SCH (08:49)
[2019-05-19] MEDS: MULTIVITAMINS/MINERALS TAB PO SCH (08:49)
[2019-05-19] MEDS: SENNOSIDES 8.6 MG TAB PO SCH (08:49)
[2019-05-19] MEDS: FERROUS SULFATE 325 MG TAB PO SCH (08:49)
[2019-05-19] MEDS: ALLOPURINOL 100 MG TAB PO SCH (08:50)
[2019-05-19] MEDS: SODIUM BICARBONATE 650 MG TAB PO SCH (08:50)
[2019-05-19 08:51] VITALS: BP 139/63
[2019-05-19 12:00] VITALS: BP 125/60
== END 2019-05-19 12:19 | disposition home or self-care (01) | DRG 872 ==
LOC: ER 14:10 → ERHOLD 17:13 → MED/SURG3 19:09
PROVIDERS: ADMIT Internal Medicine; ATTEND Internal Medicine
PROC: 0DB78ZX Excision of Stomach, Pylorus, Via Natural or Artificial Opening Endoscopic, Diagnostic (ICD-10-PCS; 2019-05-18)
PROC: 0DB38ZX Excision of Lower Esophagus, Via Natural or Artificial Opening Endoscopic, Diagnostic (ICD-10-PCS; principal; 2019-05-18 13:30)
DX: A41.9 Sepsis, unspecified organism (principal); N17.9 Acute kidney failure, unspecified; N39.0 Urinary tract infection, site not specified; E87.1 Hypo-osmolality and hyponatremia; I10 Essential (primary) hypertension; R26.9 Unspecified abnormalities of gait and mobility; K21.9 Gastro-esophageal reflux disease without esophagitis; F32.9 Major depressive disorder, single episode, unspecified; E78.5 Hyperlipidemia, unspecified; M10.9 Gout, unspecified; Z86.73 Personal history of transient ischemic attack (TIA), and cerebral infarction without residual deficits
CPT/HCPCS: 36415; 43239; 71045; 80048; 80053; 81001; 82270; 82550; 82553; 82948; 83605; 83735; 84295; 84484; 85014; 85018; 85025; 85610; 85730; 87040; 87071; 87086; 87186; 87205; 87400; 88305; 88312; 88342; 93005; 97139; 99284; J0692; J0696; J2001; J2550; J3370; J7030